=== PATIENT | female | born 1965 | race Caucasian/White ===

== ENCOUNTER 2020-12-02 08:10 | Outpatient (RCR) | payer BC, SELFPAY ==
[2020-12-02] MEDS: COVID-19 VACC, MRNA(PFIZER)/PF 30 MCG/0.3 ML SYRINGE IM (18:52)
[2020-12-23] MEDS: COVID-19 VACC, MRNA(PFIZER)/PF 30 MCG/0.3 ML SYRINGE IM (18:33)
== END 2020-12-02 23:59 ==
LOC: IMMUN 08:10
PROVIDERS: PCP Family Medicine; Referring Provider Family Medicine; Visit Provider Family Medicine
DX: Z23 Encounter for immunization (principal)
CPT/HCPCS: 0001A; 0002A; 91300